=== PATIENT | male | born 1970 ===

== ENCOUNTER 2021-07-14 11:30 | Emergency (ER) | payer SELFPAY ==
[2021-07-14] MEDS ORDERED: HYDROcodone/ACETAMINOPHEN 10-325MG TAB PO ONE (12:25)
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
--- NOTE | 2021-07-14 13:28 | XRay Report ---
RIGHT KNEE 3 VIEWS INDICATION / CLINICAL INFORMATION: Pain in right knee. COMPARISON: None available. FINDINGS: BONES and JOINT(S): No acute fracture or subluxation. No significant arthritis. SOFT TISSUES: No significant abnormality. ADDITIONAL FINDINGS: None. IMPRESSION: 1. No acute findings. Signer Name: Brant Rodrigez MD Signed: 07/14/2021 1:24 PM Workstation Name: [id number]
--- NOTE | 2021-07-14 13:29 | XRay Report ---
CERVICAL SPINE 4 VIEWS INDICATION: Neck pain. COMPARISON: No relevant prior imaging study available. FINDINGS: VERTEBRAE: No acute fracture. Normal alignment. DISC SPACES: There are multilevel mild discogenic degenerative changes. FACET JOINTS: No significant abnormality. SOFT TISSUES: No significant abnormality. ADDITIONAL FINDINGS: No additional significant findings. IMPRESSION: 1. No acute findings. 2. Mild cervical spondylosis. Signer Name: Brant Rodrigez MD Signed: 07/14/2021 1:24 PM Workstation Name: [email or web address]
--- NOTE | 2021-07-14 13:31 | XRay Report ---
RIGHT SHOULDER 3 VIEWS INDICATION / CLINICAL INFORMATION: Pain in right shoulder. COMPARISON: None available. FINDINGS: BONES and JOINT(S): No acute fracture or subluxation. No significant arthritis. SOFT TISSUES: No significant abnormality. ADDITIONAL FINDINGS: None. IMPRESSION: 1. No acute findings. Signer Name: Brant Rodrigez MD Signed: 07/14/2021 1:27 PM Workstation Name: [id number]
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
[2021-07-14 14:26] VITALS: BP 141/101
== END 2021-07-14 14:26 | disposition home or self-care (01) ==
LOC: ED 11:30
DX: M54.2 Cervicalgia (principal); M25.511 Pain in right shoulder; M25.561 Pain in right knee; Z79.899 Other long term (current) drug therapy; V89.2XXA Person injured in unspecified motor-vehicle accident, traffic, initial encounter; Y93.89 Activity, other specified; Y92.488 Other paved roadways as the place of occurrence of the external cause; Y99.8 Other external cause status
CPT/HCPCS: 72040; 99283